=== PATIENT | female | born 1990 | race Asian ===

== ENCOUNTER 2022-06-23 05:18 | Outpatient (CLI) | payer OTHER ==
[~2022-06-23] VITALS: Ht 154.9 cm; Wt 70.9 kg
[2022-06-23 06:15] VITALS: BP 102/68; PULSE 80; TEMP 98.1
[2022-06-23] MEDS ORDERED: GLUCOPHAGE500 MG/TAB PO (21:48)
[2022-06-23] MEDS ORDERED: FLAGYL 500500 MG/100 PO (21:49)
[2022-06-23] MEDS ORDERED: PRENATAL TABLET PO (21:50)
[2022-06-24] MEDS ORDERED: MOTRIN 800800 MG/TAB PO (20:53)
== END 2022-06-23 07:30 ==
LOC: LDRO 05:18
DX: O99.613 Diseases of the digestive system complicating pregnancy, third trimester (principal); Z3A.38 38 weeks gestation of pregnancy

== ENCOUNTER 2022-06-23 21:20 | Inpatient (IN) | payer OTHER ==
[2022-06-23] VITALS (7 sets, daily range): BP systolic 96–136; BP diastolic 55–81; PULSE 91–100; TEMP 98.9
[~2022-06-23] VITALS: Ht 154.9 cm; Wt 70.9 kg
--- NOTE | 2022-06-23 21:40 | NUR ---
2139 G1L0 38.5 WEEK GEST TO LR3 WITH C/O CONTRACTIONS SINCE LAST NIGHT. VERY UNCOMFORTABLE. EFM ON. SVE 100/0. BOW INTACT. ADM ASSESSMENT COMPLETED. WANTING AN EPIDURAL. [address] DR [address] CASTILLO NOTIFIED AND ORDERS RECEIVED TO ADM.
[2022-06-23] MEDS ORDERED: GLUCOPHAGE500 MG/TAB PO (21:48)
[2022-06-23] MEDS ORDERED: FLAGYL 500500 MG/100 PO (21:49)
[2022-06-23] MEDS ORDERED: PRENATAL TABLET PO (21:50)
--- NOTE | 2022-06-23 22:20 | NUR ---
2220 IV STARTED. PERMITS SIGNED. CHANGE CONTROL ANALYST NOTIFIED OF NEED FOR EPIDURAL.
[2022-06-23 22:33] LABS: BASO # 0.1 K/mm3 (0.0-0.2); BASO % 0.4 % (0.0-2.0); GRAN # 17.3 K/mm3 (1.4-6.5); HEMATOCRIT 37.1 % (37.0-47.0); HEMOGLOBIN 12.3 g/dl (12.5-16.0); LYMPH # 1.1 K/mm3 (1.2-3.4); LYMPH % 5.7 % (20.0-51.0); MEAN CELL VOLUME 91 fl (80.0-100.0); MEAN CORPUSCULAR HEMOGLOBIN 30 pg (27-31); MEAN CORPUSCULAR HGB CONC 33 g/dl (33.0-37.0); MEAN PLATELET VOLUME 11.8 fl (7.4-10.4); MONO # 0.8 K/mm3 (0.1-0.6); MONO % 4.1 % (1.7-9.3); PLATELET COUNT 163 K/mm3 (130-400); RED BLOOD COUNT 4.07 M/mm3 (4.10-5.30); REDCELL DISTRIBUTION WIDTH-CV 16.6 % (11.5-14.5)
--- NOTE | 2022-06-23 22:40 | NUR ---
2240 SITTING ON SIDE OF BED FOR EPID PLACEMENT. 2247 SINGLE SHOT GIVEN. SEE PATIENT SERVICES SPECIALIST RECORDS FOR MORE INFORMATION
[2022-06-24] VITALS (62 sets, daily range): BP systolic 88–141; BP diastolic 50–79; PULSE 93–129; TEMP 97.7–99.3
--- NOTE | 2022-06-24 00:30 | NUR ---
0030 OCC ARRYTHMIA OR HEART RATE SKIPPING A BEAT HEARD ON EFM.
--- NOTE | 2022-06-24 09:00 | NUR ---
PATIENT HAS TEMP OF 99.1 AND PULSE WAS ELEVATED. BLOOD PRESSURE AT PATIENT'S BASELINE 0740 CALL TO MD TO NOTIFY OF PATIENT UPDATE. NEW ORDER FOR TYLENOL 1,000 MG. NO OTHER ORDERS AT THIS TIME.
--- NOTE | 2022-06-24 10:12 | NUR ---
1004 CALLED AN UPDATED ON SVE ./+1. STATED TO RECHECK HER IN 30 MINS AND LET HER KNOW. NO NEW ORDERS PLACED.
--- NOTE | 2022-06-24 10:44 | NUR ---
1035 SVE 9.5/+1, PLACED IN DANIA POSITION 1041 CALLED AND NOTIFIED OF SVE AND POSITION CHANGE. STATED TO CHECK AGAIN AT 1100 AND CALL AND UPDATE.
--- NOTE | 2022-06-24 14:45 | NUR ---
1107 SVE /+1 MD CALLED AND NOTIFIED. MD STATED TO GO AHEAD AND PRACTICE PUSH WITH PATIENT. ROOM SET UP. 1130 BEGAN PRACTICE PUSHING WITH PATIENT. EDUCATED ON HOW TO PUSH WITH EACH CONTRACTION. 1211 MD CALLED AND UPDATED ON PUSHING. CHARGE NOTIFIED TO HOLD OFF ON PUSHING UNTIL MD GETS HERE. 1230 MD AT BEDSIDE PUSHES WITH PATIENT. 1236 NURSE RESUMES PRACTICE PUSHING. 1256 MD BACK AT BEDSIDE. RESUMED PUSHING WITH PATIENT. 1302 VACCUM APPLIED TO HEAD 2 PULLS NO POOP OFFS 1308 DELIVERY OF HEAD AND INFANT. SUCTIONED AND PLACED ON MOTHER CHEST. 1309 PLACENTA DELIVERED PITOCIN BOLUS STARTED. MD REPAIRED 2 DEGREE TEAR. MATERNAL TEMP OF 100.7 MD VERBAL ORDERED ANTIBIOTICS. 1359 MATERNAL TEMP 98.5
--- NOTE | 2022-06-24 16:54 | NUR ---
1609 AT BEDSIDE, ASK PATIENT HOW HER PAIN IS, STATED SHE IS NOT IN ANY PAIN AND FEELS OKAY. EDUCATED THE PATIENT ON GETTING HER UP AND TO THE RESTROOM TO GET CLEANED UP VERBALIZED UNDERSTANDING. 1610 SITS PATIENT ON SIDE OF THE BED TO DANGLE FEET. 1611 WHILE PATIENT SITTING UP EPIDURAL CATH TAKEN OUT. PATIENT STATES SHE FEELS FINE. PATIENT STANDS UP AND LOCKS KNEES WHILE LOOKNG FORWARD AND WALKS TO RESTROOM ACCOMPANIED BY NURSE. SITS ON TOLIET AND BEGINS USING RESTROOM. WHILE GETTING PAD PATIENT CALLS HUSBANDS NAME AND UPON REENTERING BATHROOM PATIENT STATES SHE FEELS DIZZY AND LOSS CONSCIOUSNESS ON TOILET. EMERGENCY CORD PULLED AND ASSISTANNCE CAME. PATIENT CAME BACK TO WITH AMMONIA SWAB. PRIMARY AND CHARGE NURSE TRANSFERS PATIENT TO WHEELCHAIR AND BACK INTO BED. VITALS TAKEN. UPON NOTING BLOOD IN THE TOLIET WITH NO CLOTS PATIENT'S FUNDUS WAS RUBBED AGAIN AND FIRM WITH SCANT BLEEDING. PATIENT ABLE TO STATE NAME, LOCATION AND DAUGHTERS NAME. IV FLUID BOLUS STARTED. PATIENT STATED SHE IS FEELING BETTER. 1648 MD CALLED AND UPDATED, CBC ORDERED BY PHONE ORDER AND WILL CALL CLINICAL RESEARCH MONITOR MD IF ABNORMAL OR ANY OTHER CONCERNS.
[2022-06-24 17:41] LABS: BASO # 0.1 K/mm3 (0.0-0.2); BASO % 0.3 % (0.0-2.0); GRAN # 19.3 K/mm3 (1.4-6.5); GRAN % 87.7 % (42.2-75.2); LYMPH # 1.4 K/mm3 (1.2-3.4); LYMPH % 6.4 % (20.0-51.0); MEAN CELL VOLUME 94 fl (80.0-100.0); MEAN CORPUSCULAR HGB CONC 32 g/dl (33.0-37.0); MEAN PLATELET VOLUME 11.3 fl (7.4-10.4); MONO % 4.6 % (1.7-9.3); PLATELET COUNT 150 K/mm3 (130-400); RED BLOOD COUNT 3.23 M/mm3 (4.10-5.30); REDCELL DISTRIBUTION WIDTH-CV 16.7 % (11.5-14.5)
[2022-06-24 17:44] LABS: HEMATOCRIT 30.4 % (37.0-47.0); HEMOGLOBIN 9.8 g/dl (12.5-16.0); MEAN CORPUSCULAR HEMOGLOBIN 30 pg (27-31)
--- NOTE | 2022-06-24 18:06 | NUR ---
NOTIFIED BEER MERCHANT MD OF CRITICAL WBC COUNT OF 22 AND ALSO OF DECREASE IN HEMOGLOBIN FROM 12.3 TO 9.8. NO NEW ORDERS AT THIS TIME. WILL REPORT OFF TO ONCOMING NURSE.
--- NOTE | 2022-06-24 18:45 | NUR ---
1845 UP IN W/C WITH ASSIST AND TRANSFERRED TO 208. UP TO BR AND VOIDED 1200 CC. VAG BLEEDING WNL. UP IN ROOM. NO C/O DIZZINESS.
[2022-06-24] MEDS ORDERED: MOTRIN 800800 MG/TAB PO (20:53)
[2022-06-25 06:53] VITALS: BP 100/61; PULSE 82; TEMP 97.9
[2022-06-25] MEDS ORDERED: BREASTPUMP MC (08:51)
--- NOTE | 2022-06-25 09:38 | NUR ---
Initial visit; Parents thanked Quality Assistant for looking in on them and offering congratulations for the of their daughter. Quality Assistant thanked family for choosing [place]/[facility].
[2022-06-25 17:02] VITALS: BP 101/66; PULSE 90; TEMP 97.9
[2022-06-25 20:30] VITALS: BP 115/80; PULSE 95; TEMP 98.1
[2022-06-26 07:12] VITALS: BP 101/70; PULSE 80; TEMP 98
--- NOTE | 2022-06-26 08:15 | NUR ---
this rn gives report to Chaparrita FRENCH RN
== END 2022-06-26 15:05 | disposition home or self-care (01) | DRG 805 ==
LOC: LDRO 21:20 → OB 22:00 → LDR 22:00 → OB 06-24 18:45
PROVIDERS: Obstetrics & Gynecology; ADMIT Obstetrics & Gynecology
PROC: 10D07Z6 Extraction of Products of Conception, Vacuum, Via Natural or Artificial Opening (ICD-10-PCS; principal; 2022-06-24)
PROC: 0KQM0ZZ Repair Perineum Muscle, Open Approach (ICD-10-PCS; 2022-06-24)
PROC: 10907ZC Drainage of Amniotic Fluid, Therapeutic from Products of Conception, Via Natural or Artificial Opening (ICD-10-PCS; 2022-06-24)
DX: O24.425 Gestational diabetes mellitus in childbirth, controlled by oral hypoglycemic drugs (principal); O41.1230 Chorioamnionitis, third trimester, not applicable or unspecified; Z37.0 Single live birth; O76 Abnormality in fetal heart rate and rhythm complicating labor and delivery; O99.02 Anemia complicating childbirth; D64.9 Anemia, unspecified; O99.892 Other specified diseases and conditions complicating childbirth; R00.0 Tachycardia, unspecified; Z3A.38 38 weeks gestation of pregnancy; O70.1 Second degree perineal laceration during delivery; O75.81 Maternal exhaustion complicating labor and delivery
CPT/HCPCS: J0290; J1580; J2590; J7120